=== PATIENT | female | born 1990 | race African-American/Black ===

== ENCOUNTER 2021-01-01 10:33 | Emergency (ER) | payer MEDICAID, SELFPAY ==
[2021-01-01 10:46] VITALS: BP 146/89; PULSE 60; RESP 18; TEMP 36.9; O2SAT 100; BMI 32.8
--- NOTE | 2021-01-01 11:09 | ED_ITS ---
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 Reports tried to remove without success. Denies injury to other area, fever, chills Complaint: extremity pain Related Data Allergies Allergy/AdvReac Type Severity Reaction Status Date / Time Penicillins [PCN] AdvReac Severe HIVE Verified 01/01/21 10:49 Review of Systems Review of Systems: Constitutional: No Fever, No Chills Musculoskeletal: + joint pain Skin: +FB under nail Neuro: No Weakness, No Numbness, No Paresthesias Yes all other systems are reviewed and are negative [facility] Past Medical History Attestation statement: The following information was validated with the patient. Medical History (Updated 01/01/21 @ 11:53 by BREA Polk) No known health problems Social History Social History Advance Directives: Yes Advance Directives Information Provided: No Advance Directives on File: No Physical Exam Vital Signs: Vital Signs: Last Vital Signs Temp 98.5 F 01/01/21 10:46 Pulse 60 01/01/21 10:46 Resp 18 01/01/21 10:46 BP 146/89 H 01/01/21 10:46 Pulse Ox 100 01/01/21 10:46 Body Mass Index 32.8 Const: General: cooperative and healthy appearing Orientation/consciousness: patient oriented x3 Limitations: no limitations HENMT: Head: Yes normal to inspection Ears: hearing grossly normal bilaterally General nose exam: Normal external nose present Face and sinus: Yes normal facial exam Eyes: General: appearance normal, both eyes and all related structures EOM: EOMs intact bilaterally Neck: Neck: Yes normal visual inspection Resp: Effort & Inspection: normal respiratory effort Cardio: Peripheral pulses: radial pulses present Skin: Other: + visible wooden splinter embedded under right middle finger nail bed. 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 On exam VSS, NAD, visible splinter under right middle finger nail bed, will digital block and attempt foreign body removal Discharge Plan Discharge Clinical Impression: Splinter Patient Disposition: Home, Self-Care Instructions: Soft Tissue Foreign Body (ED) Additional Instructions: You had a splinter in your nail that was removed Keep area clean If area begins to look infected, is red, there is drainage, you fever return to the ED Take Tylenol and Motrin for pain Referrals: Physician,Unknown [Primary Care Provider] - 1 week (As needed) Stand Alone Forms: Work/School Release
[2021-01-01] MEDS: Lidocaine HCl 1 % MPF 5 ML VIAL SUBCUT (11:12)
== END 2021-01-01 11:57 | disposition home or self-care (01) ==
PROVIDERS: Emergency Provider Emergency Medicine
DX: S61.242A Puncture wound with foreign body of right middle finger without damage to nail, initial encounter (principal); W45.8XXA Other foreign body or object entering through skin, initial encounter; Y93.9 Activity, unspecified; Y92.812 Truck as the place of occurrence of the external cause; Y99.0 Civilian activity done for income or pay
CPT/HCPCS: 64450; 99283; 99284

== ENCOUNTER 2021-11-21 11:42 | Emergency (ER) | payer OTHER, MEDICAID, SELFPAY ==
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
[2021-11-21 12:22] VITALS: BP 138/80; BP 146/79; PULSE 70; PULSE 71; RESP 16; TEMP 36.8; O2SAT 100; BMI 31.3
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
[2021-11-21 13:32] LABS: UPreg QC Valid YES; Urine Pregnancy NEGATIVE (NEGATIVE)
[2021-11-21 14:25] VITALS: BP 140/97; PULSE 65; RESP 17; TEMP 36.9; O2SAT 99
[2021-11-21] MEDS: Ketorolac Tromethamine 15 MG/ML VIAL IM (16:23)
== END 2021-11-21 16:32 | disposition home or self-care (01) ==
PROVIDERS: Physician Assistant; Emergency Provider Emergency Medicine
DX: S20.212A Contusion of left front wall of thorax, initial encounter (principal); V03.00XA Pedestrian on foot injured in collision with car, pick-up truck or van in nontraffic accident, initial encounter; R91.8 Other nonspecific abnormal finding of lung field; Y93.89 Activity, other specified; Y92.414 Local residential or business street as the place of occurrence of the external cause; Y99.0 Civilian activity done for income or pay
CPT/HCPCS: 71101; 73502; 81025; 96372; 99284; J1885